=== PATIENT | male | born 1990 | race Caucasian/White ===

== ENCOUNTER 2021-04-20 21:56 | Inpatient (IN) | payer SELFPAY ==
[~2021-04-20] VITALS: Ht 170.2 cm; Wt 90.9 kg
[2021-04-20] MEDS ORDERED: VENTAER INH (22:10)
[2021-04-20] MEDS ORDERED: CETI10CH PO (22:10)
[2021-04-20] MEDS ORDERED: LEXA1TAB PO (22:10)
[2021-04-21] MEDS ORDERED: ONDANSETRON 4 MG ORAL DISINTEGRATING TAB PO ONE (00:05)
[2021-04-21] MEDS ORDERED: NS 1,000 ML IV ONE (02:45)
[2021-04-21 03:18] LABS: BASO % 0.4 % (0.0-1.0); EOS % 0.4 % (0.0-3.0); HEMATOCRIT 41.9 % (42.0-52.0); HEMOGLOBIN 14.6 g/dl (13.5-17.5); LYMPH # 1.7 10^3/uL (1.5-5.0); LYMPH % 15.5 % (24.0-44.0); MEAN CORPUSCULAR HEMOGLOBIN 30.3 pg (27.0-33.0); MEAN CORPUSCULAR HGB CONC 34.8 g/dl (32.0-36.5); MEAN CORPUSCULAR VOLUME 86.9 fl (80.0-96.0); MONO # 0.9 10^3/uL (0.0-0.8); MONO % 8.7 % (2.0-8.0); NEUTROPHILS % 74.6 % (36.0-66.0); PLATELET COUNT, AUTOMATED 235 10^3/uL (150-450); RED BLOOD COUNT 4.82 10^6/uL (4.30-6.10); WHITE BLOOD COUNT 10.7 10^3/uL (4.0-10.0)
[2021-04-21 03:55] LABS: ALBUMIN 3.8 GM/DL (3.2-5.2); ALT/SGPT 21 U/L (12-78); BILIRUBIN,DIRECT 0.2 MG/DL (0.0-0.2); BILIRUBIN,TOTAL 0.8 MG/DL (0.2-1.0); BLOOD UREA NITROGEN 11 MG/DL (7-18); CARBON DIOXIDE LEVEL 23 MEQ/L (21-32); CHLORIDE LEVEL 108 MEQ/L (98-107); CREATININE FOR GFR 0.94 MG/DL (0.70-1.30); GLOMERULAR FILTRATION RATE > 60.0 (>60); GLUCOSE, FASTING 98 MG/DL (70-100); LIPASE 103 U/L (73-393); POTASSIUM SERUM 3.4 MEQ/L (3.5-5.1); SODIUM LEVEL 140 MEQ/L (136-145); TOTAL PROTEIN 7.5 GM/DL (6.4-8.2)
[2021-04-21] MEDS ORDERED: POTASSIUM CHLORIDE 10 MEQ SR TABLET PO ONE (04:30)
--- NOTE | 2021-04-21 04:33 | REPVR ---
PROCEDURE INFORMATION: Exam: CT Abdomen And Pelvis Without Contrast Exam date and time: 04/21/2021 3:05 AM Age: 31 years old Clinical indication: Vomiting TECHNIQUE: Imaging protocol: Computed tomography of the abdomen and pelvis without contrast. Radiation optimization: All CT scans at this facility use at least one of these dose optimization techniques: automated exposure control; mA and/or kV adjustment per patient size (includes targeted exams where dose is matched to clinical indication); or iterative reconstruction. COMPARISON: No relevant prior studies available. FINDINGS: Liver: Normal. No mass. Gallbladder and bile ducts: Question of layering sludge or faint stones in the gallbladder. Pancreas: Normal. No ductal dilation. Spleen: Normal. No splenomegaly. Adrenal glands: Normal. No mass. Kidneys and ureters: Normal. No hydronephrosis. Stomach and bowel: There is colonic diverticulosis without evidence of diverticulitis. Slight wall thickening of small bowel segments in the right lower quadrant. Appendix: A normal appendix is seen. Intraperitoneal space: Slight edema of supplying mesentery in the lower abdomen and pelvis. Vasculature: Unremarkable. No abdominal aortic aneurysm. Lymph nodes: Unremarkable. No enlarged lymph nodes. Urinary bladder: Unremarkable as visualized. Reproductive: Unremarkable as visualized. Bones/joints: Unremarkable. No acute fracture. Soft tissues: Unremarkable. IMPRESSION: 1. Suggestion of enteritis, particularly involving right lower quadrant ileal segments. 2. Question of layering sludge or faint stones in the gallbladder. 3. Colonic diverticulosis without diverticulitis. Electronically signed by: Fidel De La Cruz On 04/21/2021 04:32:26 AM
[2021-04-21] MEDS ORDERED: PROMETHAZINE INJ 25 MG/ML VIAL (J2550) IV ONE ×2 (04:35→10:10)
[2021-04-21] MEDS ORDERED: CETI-24 PO (04:57)
[2021-04-21] MEDS ORDERED: LEXA1TAB PO (04:57)
[2021-04-21] MEDS ORDERED: PROAAER10 INH (04:57)
[2021-04-21] MEDS ORDERED: ZOFR4TAB16 PO (05:01)
[2021-04-21] MEDS ORDERED: MULTCHW12 PO (05:01)
[2021-04-21] MEDS ORDERED: ONDANSETRON 4MG/2ML VIAL IV PRN (05:25)
[2021-04-21] MEDS ORDERED: MOM 30ML SUSPENSION UDC PO PRN (05:25)
[2021-04-21] MEDS ORDERED: PROMETHAZINE INJ 25 MG/ML VIAL (J2550) IV PRN (05:25)
[2021-04-21] MEDS ORDERED: MAALOX 30 ML SUSP *UDC PO PRN (05:25)
[2021-04-21] MEDS ORDERED: ALBUTEROL 90 MCG/ACT 8GM HFA INHALER INH PRN (06:00)
[2021-04-21] MEDS ORDERED: CETIRIZINE (ZyrTEC) 10 MG TAB PO PRN (06:00)
[2021-04-21] MEDS ORDERED: CAPSAICIN 0.025% CR 60 GM TOP PRN (06:00)
--- NOTE | 2021-04-21 06:29 | HPEPDOC ---
[facility] Medical History & Physical Date of Admission April 21, 2021 Date of Service: April 21, 2021 Attending Physician: MUSA LANDRY MD History and Physical CHIEF COMPLAINT: Uncontrollable nausea and vomiting HISTORY OF PRESENT ILLNESS: Patient is a 31-year-old male with a past medical history of [place]-Ocampo tear, mild persistent asthma, anxiety/depression, chronic migraine headaches who presents to [facility] ED straight from [place] because of no improvement in his symptoms including nausea, vomiting and wretching. Patient states he was apparently ordered Sunday morning when he received his first dose of Moderna vaccine 12 hours after which he started with continuous vomiting spells(6-7) and nausea. The vomiting was initially forceful, included everything he ate, with a tinge of blood. He reported to the [place] urgent care Sunday was given treatments including IV fluids and Zofran and sent home . That didn't help at all. Patient continued to have dry heaving and burping as he had an been able to keep anything down. He also started having severe dull abdominal pain in all quadrants due to continuous wretching. All day Sunday patient continued to wretch unable to keep anything down and started getting dizzy with cold sweats and extreme weakness where he fell down multiple times. Patient presented today at [facility] ED looking dehydrated , however normal vitals, his labs showed slight most likely reactive leukocytosis, hypokalemia and CT abdomen showed: 1. Suggestion of enteritis, particularly involving right lower quadrant ileal segments. 2. Question of layering sludge or faint stones in the gallbladder. 3. Colonic diverticulosis without diverticulitis. Patient also has a history of heavy marijuana use. The last time patient had marijuana as per him was Sunday. However he denies heavy marijuana use but he has been using for more than a year. PAST MEDICAL HISTORY: 1. Mild persistent asthma. 2. 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 3. Anxiety and depression. PAST SURGICAL HISTORY: None SOCIAL HISTORY: Employment: Currently unemployed Tobacco use: Never smoker ETOH: Occasional Illicit drug use: Denies Tattoos done unprofessionally: Denies IV drug use: Denies Other relevant social factors: None FAMILY HISTORY: Unremarkable Hereditary Diseases: None Unexpected deaths due to medical reasons: No ALLERGIES: Please see below. REVIEW OF SYSTEMS: CONSTITUTIONAL: No fevers/chills/unintentional weight loss/night sweats. HEENT: No sore throat/runny nose. CARDIOVASCULAR: No chest pain/orthopnea/PND/leg swelling. RESPIRATORY: No shortness of breath/cough. GASTROINTESTINAL: No diarrhea/constipation. However reports severe nausea and vomiting. GENITOURINARY: No dysuria/polyuria. SKIN: No excessive bleeding or bruising. MUSCULOSKELETAL: Noted joint pain/joint stiffness. NEUROLOGICAL: No numbness/tingling/paresthesias. PSYCHIATRIC: No depression. Reports excessive anxiety due to current condition. ENDOCRINE: No polydipsia/polyphagia/polyuria. HEMATOLOGIC/LYMPHATIC: Nor lumps or bumps/excessive bleeding or bruising. HOME MEDICATIONS: Please see below. PHYSICAL EXAMINATION: VITAL SIGNS: Temperature 98.4, pulse 68, respiratory rate 18, blood pressure 134/75, pulse oximetry 98 % on room air. GENERAL APPEARANCE: Patient looks overly anxious and moderately distressed maurice use of the discomfort in his belly and nausea. HEENT: Atraumatic, normocephalic, dry mucous membranes, no scleral icterus, no conjunctival pallor, EOMI, PERRLA. CARDIOVASCULAR: Rate normal, rhythm regular, S1 and S2 heard, no murmurs appreciated. LUNGS: Clear to auscultation bilaterally. No wheezing/crackles/rhonchi. ABDOMEN: Nondistended. Tender to deep palpation in all quadrants. No organomegal y. Hyperactive bowel sounds. MUSCULOSKELETAL: No joint pain deformity. Range of motion normal in all joints. EXTREMITIES: Good volume pulses, no pedal edema. Capillary refill delayed. NEUROLOGICAL: Good motor strength 5 over 5, sensations intact. Cranial nerves II-12 normal. PSYCHIATRIC: Anxious. Normal affect and mood. LABORATORY DATA: See below. IMAGING: CT abdomen and pelvis done on 04/21/2021: Shows 1. Suggestion of enteritis, particularly involving right lower quadrant ileal segments. 2. Question of layering sludge or faint stones in the gallbladder. 3. Colonic diverticulosis without diverticulitis. MICROBIOLOGY: Please see below. ASSESSMENT AND PLAN: Patient is a 31-year-old male with a past medical history of [place]-Ocampo tear, mild persistent asthma, anxiety/depression, chronic migraine headaches who presents to [facility] ED straight from [place] because of no improvement in his symptoms including nausea, vomiting and wretching. Patient states he was apparently ordered Sunday morning when he received his first dose of Moderna vaccine 12 hours after which he started with continuous vomiting spells(6-7) and nausea. The vomiting was initially forceful, included everything he ate, with a tinge of blood. He reported to the [place] urgent care Sunday was given treatments including IV fluids and Zofran and sent home . That didn't help at all. Patient continued to have dry heaving and burping as he had an been able to keep anything down. He also started having severe dull abdominal pain in all quadrants due to continuous wretching. All day Sunday patient continued to wretch unable to keep anything down and started getting dizzy with cold sweats and extreme weakness where he fell down multiple times. #Recurrent nausea and vomiting secondary to viral/bacterial gastroenteritis versus cannabis hyperemesis versus diverticulitis : -Lab workup shows low potassium of 3.3. Otherwise no other electrolyte abnormality. -CT abdomen showed enteritis and presence of diverticulosis without any evidence of diverticulitis. -Patient was given oral ondansetron. -IV promethazine 12.5 mg which helped resolve the vomiting. -Patient was started on IV fluids with D5. -Patient is still nothing by mouth -We are holding patient's medications that might cause gastric irritation. -Patient was advised not to take Excedrin or Aleve for his headaches. -And gastroenterology will see the patient in the morning. Giving recommendations whether endoscopy and colonoscopy is indicated. Their expert input and recommendations are highly recommended. -As needed capsaicin cream ordered for pain and discomfort. #Hypokalemia: -Most likely due to continuous vomiting and decreased oral intake. -Patient was repleted with oral potassium -Will continue to trend on morning labs. -Patient's EKG was normal. #Mild persistent asthma: -Patient states he only requires to take albuterol inhaler 2-3 times a week. -Will continue patient's home inhalers. #Virgin[place]-Ocampo tear diagnosed couple of years ago: -Patient has a history of vomiting with tinge of blood. -Patient denies binge eating disorder or heavy drinking. -Proper diagnosis needs to be made as an outpatient with shake backboard notcher #Chronic migraine headaches: -Patient has not been diagnosed however he sees the headache feels like migraine. -Patient advised to stop taking Aleve and Excedrin for these headaches instead he can try Tylenol. -Acetaminophen ordered for pain control. DVT prophylaxis: Teds and sequentials. No anticoagulants suspecting a possible GI bleed DISPOSITION: Pending improvement, most likely 2 hospital days. Vital Signs Vital Signs Date Time Temp Pulse Resp B/P (MAP) Pulse Ox O2 Delivery O2 Flow Rate FiO2 04/20/21 22:03 98.4 68 18 134/75 98 Room Air Laboratory Data Labs 24H Laboratory Tests 2 04/21/21 03:01: Immature Granulocyte % (Auto) 0.4, Neutrophils (%) (Auto) 74.6H, Lymphocytes (%) (Auto) 15.5L, Monocytes (%) (Auto) 8.7H, Eosinophils (%) (Auto) 0.4, Basophils (%) (Auto) 0.4, Neutrophils # (Auto) 8.0, Lymphocytes # (Auto) 1.7, Monocytes # (Auto) 0.9H, Eosinophils # (Auto) 0.0, Basophils # (Auto) 0.0, Nucleated Red Blood Cells % (auto) 0.0, Anion Gap 9, Glomerular Filtration Rate > 60.0, Lactic Acid Level 1.1, Calcium Level 9.0, Total Bilirubin 0.8, Direct Bilirubin 0.2, Aspartate Amino Transf (AST/SGOT) 17, Alanine Aminotransferase (ALT/SGPT) 21, Alkaline Phosphatase 56, Total Protein 7.5, Albumin 3.8, Albumin/Globulin Ratio 1.0, Lipase 103 04/21/21 04:44: Urine Color YELLOW, Urine Appearance CLEAR, Urine pH 6.0, Urine Specific [place] 1.015, Urine Protein NEGATIVE, Urine Glucose (UA) NEGATIVE, Urine Ketones 1+H, Urine Blood NEGATIVE, Urine Nitrite NEGATIVE, Urine Bilirubin NEGATIVE, Urine Urobilinogen 0.2, Urine Leukocyte Esterase NEGATIVE, Urine WBC (Auto) 0, Urine RBC (Auto) 0, Urine Hyaline Casts (Auto) 0, Urine Bacteria (Auto) NEGATIVE, Urine Squamous Epithelial Cells 0, Urine Mucus (Auto) SMALL, Urine Sperm (Auto) CBC/BMP Laboratory Tests 04/21/21 03:01 Home Medications Scheduled Escitalopram Oxalate (Lexapro) 10 Mg Tablet, 10 MG PO DAILY TAKES AT NOON Folic Acid/Multivit-Min/Lutein (Multi-Vitamin Gummies) 1 Each Tab.chew, 2 CHW PO DAILY TAKES AT NOON Scheduled PRN Albuterol Sulfate (Proair Hfa) 8.5 Gm Hfa.aer.ad, 2 PUFF INH Q4H PRN for SHORTNESS OF BREATH Cetirizine HCl (Cetirizine HCl) 10 Mg Tablet, 10 MG PO DAILY PRN for allergies Ondansetron HCl (Zofran) 4 Mg Tablet, 4 MG PO Q6H PRN for NAUSEA OR VOMITING Allergies Coded Allergies: SEASONAL ALLERGIES (Verified Allergy, Mild, 04/20/21) A-FIB/CHADSVASC A-FIB History Current/History of A-Fib/PAF?: No Current PO Anticoag Therapy: No GME ATTESTATION GME ATTESTATION My faculty preceptor for this patient encounter was physically present during the encounter and was fully available. All aspects of the patient interview, examination, medical decision making process, and medical care plan development were reviewed and approved by the faculty preceptor. The faculty preceptor is aware and concurs with the plan as stated in the body of this note and will attest to such by his/her cosignature. Neftaly Jurado MD April 21, 2021 06:29
[2021-04-21 07:20] LABS: HEMATOCRIT 39.9 % (42.0-52.0); HEMOGLOBIN 13.6 g/dl (13.5-17.5); MEAN CORPUSCULAR HEMOGLOBIN 29.9 pg (27.0-33.0); MEAN CORPUSCULAR HGB CONC 34.1 g/dl (32.0-36.5); MEAN CORPUSCULAR VOLUME 87.7 fl (80.0-96.0); PLATELET COUNT, AUTOMATED 214 10^3/uL (150-450); RED BLOOD COUNT 4.55 10^6/uL (4.30-6.10); WHITE BLOOD COUNT 10.6 10^3/uL (4.0-10.0)
[2021-04-21 07:33] LABS: INR 1.11; PARTIAL THROMBOPLASTIN TIME 26.4 SECONDS (24.2-38.5); PROTHROMBIN TIME 14.5 SECONDS (12.5-14.3)
[2021-04-21 07:36] LABS: D-DIMER QUANT 1130.31 ng/ml (<500)
[2021-04-21 07:50] LABS: ALBUMIN 3.6 GM/DL (3.2-5.2); ALT/SGPT 21 U/L (12-78); AMYLASE 42 U/L (25-115); BILIRUBIN,TOTAL 0.8 MG/DL (0.2-1.0); BLOOD UREA NITROGEN 10 MG/DL (7-18); CALCIUM LEVEL 8.5 MG/DL (8.5-10.1); CARBON DIOXIDE LEVEL 23 MEQ/L (21-32); CHLORIDE LEVEL 108 MEQ/L (98-107); CREATININE FOR GFR 0.94 MG/DL (0.70-1.30); GLOMERULAR FILTRATION RATE > 60.0 (>60); GLUCOSE, FASTING 99 MG/DL (70-100); LIPASE 94 U/L (73-393); POTASSIUM SERUM 3.3 MEQ/L (3.5-5.1); SODIUM LEVEL 140 MEQ/L (136-145); TOTAL PROTEIN 7.2 GM/DL (6.4-8.2)
[2021-04-21] MEDS: D5W/0.9% SODIUM CHLORIDE 1,000 ML IV SCH ×2 (08:07→14:02)
[2021-04-21] MEDS: PANTOPRAZOLE 40MG VIAL (C9113 PER 1) IV SCH ×2 (08:08→21:40)
[2021-04-21 09:28] VITALS: BP 170/90
[2021-04-21] MEDS ORDERED: HYDROMORPHONE HCL 0.5 MG/ 0.5 ML SYRINGE (J1170 PER 1) IV ONE (10:10)
[2021-04-21] MEDS ORDERED: PROMETHAZINE INJ 25 MG/ML VIAL (J2550) IV SCH (11:00)
[2021-04-21 11:03] VITALS: BP 125/55
[2021-04-21] MEDS: KETOROLAC 30 MG/ML 1ML VIAL IV ONE ×2 (11:58→14:07)
[2021-04-21] MEDS: METOCLOPRAMIDE INJ 10MG/2ML VIAL (J2765 PER 1) IV SCH ×2 (12:10→18:21)
[2021-04-21] MEDS: CIPROFLOXACIN 400 MG in IV 1 EA IV SCH (12:10)
[2021-04-21] MEDS: SUCRALFATE SUSP 1GM/10ML UD PO SCH ×2 (12:10→17:05)
[2021-04-21 14:00] VITALS: BP 149/97
[2021-04-21] MEDS: metroNIDAZOLE 500 MG in IV 1 EA IV SCH ×2 (14:02→21:40)
[2021-04-21] MEDS ORDERED: ALPRAZolam 0.5 MG TAB PO ONE (16:30)
[2021-04-21] MEDS: ACETAMINOPHEN TAB 650MG DOSE (2X325MG) PO PRN (21:38)
[2021-04-21 22:00] VITALS: BP 124/75
[2021-04-21] MEDS ORDERED: KETOROLAC 30 MG/ML 1ML VIAL IV ONE (23:45)
[2021-04-22] MEDS: METOCLOPRAMIDE INJ 10MG/2ML VIAL (J2765 PER 1) IV SCH ×4 (00:11→17:15)
[2021-04-22] MEDS: SUCRALFATE SUSP 1GM/10ML UD PO SCH ×4 (00:12→17:15)
[2021-04-22] MEDS: CIPROFLOXACIN 400 MG in IV 1 EA IV SCH ×2 (00:12→11:25)
[2021-04-22] MEDS: metroNIDAZOLE 500 MG in IV 1 EA IV SCH ×3 (05:25→21:03)
[2021-04-22] MEDS: D5W/0.9% SODIUM CHLORIDE 1,000 ML IV SCH ×3 (05:26→21:04)
[2021-04-22 06:00] VITALS: BP 101/69
[2021-04-22] MEDS ORDERED: ALPRAZolam 0.5 MG TAB PO ONE (06:30)
[2021-04-22] MEDS ORDERED: diphenhydrAMINE 50MG/ML VIAL (J1200) IV PRN (06:30)
[2021-04-22] MEDS: PROMETHAZINE INJ 25 MG/ML VIAL (J2550) IV PRN ×2 (07:11→13:56)
[2021-04-22 07:51] LABS: BASO # 0.1 10^3/uL (0.0-0.2); BASO % 0.8 % (0.0-1.0); EOS # 0.4 10^3/uL (0.0-0.5); EOS % 4.9 % (0.0-3.0); HEMATOCRIT 41.3 % (42.0-52.0); HEMOGLOBIN 14.2 g/dl (13.5-17.5); LYMPH # 1.9 10^3/uL (1.5-5.0); LYMPH % 25.2 % (24.0-44.0); MEAN CORPUSCULAR HEMOGLOBIN 29.3 pg (27.0-33.0); MEAN CORPUSCULAR HGB CONC 34.4 g/dl (32.0-36.5); MEAN CORPUSCULAR VOLUME 85.2 fl (80.0-96.0); MONO # 0.8 10^3/uL (0.0-0.8); MONO % 10.6 % (2.0-8.0); NEUTROPHILS # 4.4 10^3/uL (1.5-8.5); NEUTROPHILS % 57.8 % (36.0-66.0); PLATELET COUNT, AUTOMATED 230 10^3/uL (150-450); RED BLOOD COUNT 4.85 10^6/uL (4.30-6.10); WHITE BLOOD COUNT 7.5 10^3/uL (4.0-10.0)
[2021-04-22] MEDS: PANTOPRAZOLE 40MG VIAL (C9113 PER 1) IV SCH ×2 (08:06→21:03)
[2021-04-22] MEDS ORDERED: NS 1,000 ML IV ONE (08:10)
[2021-04-22 08:13] LABS: BLOOD UREA NITROGEN 10 MG/DL (7-18); CALCIUM LEVEL 8.5 MG/DL (8.5-10.1); CARBON DIOXIDE LEVEL 27 MEQ/L (21-32); CHLORIDE LEVEL 106 MEQ/L (98-107); CREATININE FOR GFR 0.88 MG/DL (0.70-1.30); GLOMERULAR FILTRATION RATE > 60.0 (>60); GLUCOSE, FASTING 103 MG/DL (70-100); MAGNESIUM LEVEL 2.2 MG/DL (1.8-2.4); POTASSIUM SERUM 2.9 MEQ/L (3.5-5.1); SODIUM LEVEL 140 MEQ/L (136-145)
[2021-04-22] MEDS ORDERED: HYDROMORPHONE HCL 0.5 MG/ 0.5 ML SYRINGE (J1170 PER 1) IV ONE (08:15)
[2021-04-22] MEDS ORDERED: PERCOCET 5MG/325MG TAB PO PRN (08:15)
[2021-04-22] MEDS ORDERED: PERCOCET 5MG/325MG TAB PO ONE (08:30)
[2021-04-22] MEDS: POTASSIUM CHLORIDE 10 MEQ SR TABLET PO SCH ×3 (08:38→13:40)
[2021-04-22] MEDS: KETOROLAC 30 MG/ML 1ML VIAL IV SCH ×3 (08:38→21:04)
[2021-04-22 08:40] LABS: ALBUMIN 3.4 GM/DL (3.2-5.2); ALT/SGPT 21 U/L (12-78); BILIRUBIN,DIRECT 0.3 MG/DL (0.0-0.2); FREE THYROXINE INDEX 2.4 % (1.4-3.8); T UPTAKE 30 % (33-40); THYROXINE (T4) 8.1 UG/DL (4.5-12.0)
--- NOTE | 2021-04-22 11:23 | REP ---
INDICATION: intractable n/v. COMPARISON: None. TECHNIQUE/RADIOTRACER AND DOSE: 1.0 mCi of Technetium-99m sulfur colloid was ingested in two scrambled eggs and 6 ounces of water and sequential anterior and posterior images are acquired for an 89-minute imaging observation period. Regions of interest are drawn around the stomach to plot gastric emptying. FINDINGS: Expected T1/2 is 90 minutes. Fifty-seven% emptying is observed in this patient during the 89-minute imaging observation period, for a calculated T1/2 in this patient of 55 minutes. IMPRESSION: Normal gastric emptying. <Electronically signed by Erick Duran > 04/22/21 [id number]
[2021-04-22] MEDS: ESCITALOPRAM OXALATE 10 MG TAB (LEXAPRO) PO SCH (11:27)
--- NOTE | 2021-04-22 11:29 | IPN ---
PROGRESS NOTE DATE: 04/22/2021 SUBJECTIVE: Patient complains of abdominal pain diffusely, no radiation, no constipation or diarrhea. Patient has no fever or chills. Nausea has improved with [id number] Phenergan and Reglan. OBJECTIVE: Vital signs: Temperature 97.1, pulse 54, respiratory rate 18, blood pressure 122/80, 97% on room air. General: Awake, alert, oriented to person, place and time, answering questions appropriately, no distress. HEENT: No icterus, jaundice. Moist mucous membranes. Lungs: Clear to auscultation, no wheezes, rhonchi or rales. Heart: S1 and S2 sinus rhythm, episodes of sinus bradycardia. Abdomen: Soft, slightly tender diffusely, no guarding or rebound, positive bowel sounds times 4 quadrants, no hepatosplenomegaly, abdominal bruits. Extremities: No cyanosis, clubbing or pitting edema. LABORATORY DATA: Microbiology has been reviewed, notable for a potassium of 2.9, TSH 6. 8 with normal Free-T4. IMAGING STUDIES: CT abdomen and pelvis 04/21/2021 shows enteritis right lower quadrant ileo segment, gallbladder sludging versus tiny stones. 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 IMPRESSION/PLAN: Right lower quadrant enteritis: Patient is on full supportive care with I.V. Reglan, Phenergan, I.V. fluids until he resumes normal intake with a regular diet. Percocet as needed 1 tablet every 4 hours, Toradol 30 mg I.V. q6h while on I.V. fluids. Currently on I.V. Cipro and Flagyl, Carafate and Protonix I.V. twice a day. Patient is resumed on albuterol as needed for his asthma, but has clear lungs currently. No other acute issues only to monitor and slowly advance diet, send for IBD serology.
[2021-04-22] MEDS ORDERED: POTASSIUM CHLORIDE 10 MEQ SR TABLET PO ONE (13:20)
[2021-04-22 14:00] VITALS: BP 138/85
[2021-04-22 22:00] VITALS: BP 107/65
[2021-04-23] MEDS: SUCRALFATE SUSP 1GM/10ML UD PO SCH ×3 (00:16→11:08)
[2021-04-23] MEDS: CIPROFLOXACIN 400 MG in IV 1 EA IV SCH ×2 (00:16→11:08)
[2021-04-23] MEDS: METOCLOPRAMIDE INJ 10MG/2ML VIAL (J2765 PER 1) IV SCH ×3 (00:16→11:08)
[2021-04-23] MEDS: KETOROLAC 30 MG/ML 1ML VIAL IV SCH ×2 (03:08→09:00)
[2021-04-23] MEDS: metroNIDAZOLE 500 MG in IV 1 EA IV SCH ×2 (04:38→12:16)
[2021-04-23 06:00] VITALS: BP 114/68
[2021-04-23 06:43] LABS: HEMATOCRIT 41.8 % (42.0-52.0); MEAN CORPUSCULAR HGB CONC 33.5 g/dl (32.0-36.5); MEAN CORPUSCULAR VOLUME 86.5 fl (80.0-96.0); PLATELET COUNT, AUTOMATED 246 10^3/uL (150-450); RED BLOOD COUNT 4.83 10^6/uL (4.30-6.10); WHITE BLOOD COUNT 7.9 10^3/uL (4.0-10.0)
[2021-04-23 07:10] LABS: ATYPICAL LYMPH 9 % (0-5); BASOPHILS 1 % (0-1); EOSINOPHILS 4 % (0-3); LYMPHOCYTES 24 % (16-44); MONOCYTES 8 % (0-5); NEUTROPHILS 53 % (28-66)
[2021-04-23 07:12] LABS: PLATELET ESTIMATE NORMAL (NORMAL)
[2021-04-23 07:29] LABS: BLOOD UREA NITROGEN 6 MG/DL (7-18); CARBON DIOXIDE LEVEL 27 MEQ/L (21-32); CHLORIDE LEVEL 104 MEQ/L (98-107); CREATININE FOR GFR 0.89 MG/DL (0.70-1.30); GLOMERULAR FILTRATION RATE > 60.0 (>60); GLUCOSE, FASTING 91 MG/DL (70-100); POTASSIUM SERUM 3.2 MEQ/L (3.5-5.1); SODIUM LEVEL 140 MEQ/L (136-145)
[2021-04-23 07:30] LABS: CALCIUM LEVEL 8.8 MG/DL (8.5-10.1)
[2021-04-23] MEDS: D5W/0.9% SODIUM CHLORIDE 1,000 ML IV SCH (07:54)
[2021-04-23] MEDS: PANTOPRAZOLE 40MG VIAL (C9113 PER 1) IV SCH (07:59)
[2021-04-23] MEDS: ACETAMINOPHEN TAB 650MG DOSE (2X325MG) PO PRN (08:00)
[2021-04-23] MEDS ORDERED: FLAG500T PO (08:31)
[2021-04-23] MEDS ORDERED: BACI1CAP PO (08:31)
[2021-04-23] MEDS ORDERED: CIPR-249 PO (08:31)
[2021-04-23] MEDS ORDERED: OXYC1TAB23 PO (08:31)
[2021-04-23] MEDS: LOMOTIL 2.5MG/0.025MG TABLET PO SCH ×2 (09:16→12:15)
[2021-04-23] MEDS: POTASSIUM CHLORIDE 10 MEQ SR TABLET PO SCH ×3 (09:17→11:07)
--- NOTE | 2021-04-23 11:09 | DSES ---
DISCHARGE SUMMARY DATE OF ADMISSION: 04/21/2021 DATE OF DISCHARGE: 04/23/2021 PRIMARY DISCHARGE DIAGNOSES: 1. Ileitis. 2. Intractable nausea and vomiting; rule out cyclic vomiting syndrome secondary to marijuana. 3. Chronic back pain. 4. Recreational drug use with marijuana. 5. 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 6. Asthma. 7. Anxiety. 8. Depression. 9. History of chronic migraines. 10.Diverticulosis. DISCHARGE MEDICATIONS: 1. Ciprofloxacin 500 p.o. b.i.d. 2. Flagyl 500 p.o. every 8 hours. 3. Bacid one tab with meals. 4. Percocet one tablet t.i.d. as needed for pain. 5. Albuterol two puffs every 4 hours as needed. 6. Cetirizine 10 daily. 7. Lexapro 10 daily. 8. Folic acid two tablets daily. 9. Zofran 4 mg every 6 hours as needed. HOSPITAL COURSE: This is a 31-year-old male admitted on 04/21/2021 with complaints of intractable nausea, vomiting and abdominal pain which was diffuse. Twelve hours after receiving the Moderna vaccine for Coronavirus. Patient complained of dizziness, cold sweats and weakness and was found to have a right ileitis. He was started on Cipro, Flagyl, antiemetic, I.V. fluids [id number]. White count was 10.7. He was afebrile. Gastric emptying study was negative. He was kept on PPI and Carafate. He had complaints of diarrhea and was found to have low potassium, which was supplemented. GI panel was negative. Hemoccult stool was negative. Per muffler hand on-call, Dr. Ma, patient may have outpatient follow-up with him. Inflammatory bowel disease serology has been sent and is pending at discharge. Patient had resolution of his abdominal pain and diarrhea, was able to tolerate his clear liquid diet, which was advanced to full liquids and low residue at discharge. Patient has no other complaints. PHYSICAL EXAMINATION ON DISCHARGE: VITAL SIGNS: Temperature 98.2, pulse 65, respiratory rate 20, blood pressure 107/65, 98% on room air. GENERAL: Awake, alert, oriented x3, answering questions appropriately. HEENT: No mouth ulcers. No JVD, thyromegaly or cervical lymphadenopathy. LUNGS: Clear to auscultation. No wheezing, rales or rhonchi. HEART: S1, S2, sinus rhythm with episodes of sinus bradycardia, but asymptomatic, nondisplaced point of maximal impulse. ABDOMEN: Soft, nontender, non-distended. Positive bowel sounds x4 quadrants. No rebound or guarding. EXTREMITIES: No cyanosis, clubbing or any pitting edema. LABORATORY DATA ON DISCHARGE: White count 7.9, hemoglobin 14, hematocrit 41, platelet count 246,000. Sodium 140, potassium 3.2, chloride 104, bicarb 27, BUN 6, creatinine 0.89, glucose 91. IBD serology is still pending. MICROBIOLOGY: GI panel, hemoccult stool are both negative. IMAGING: CT abdomen and pelvis shows ileitis with slight edema, supplying the mesentery in the lower abdomen and pelvis, layering sludge in the gallbladder, right lower quadrant ileal segment, colonic diverticulosis. Gastric emptying scan was normal. TIME SPENT ON DISCHARGE: 30 minutes. MTDD
[2021-04-23] MEDS: ESCITALOPRAM OXALATE 10 MG TAB (LEXAPRO) PO SCH (12:15)
[2021-04-27 14:09] LABS: Chitobioside Carbohydrat (ACCA 127 units (0-90); Laminaribioside Carbohyd (ALCA 23 units (0-60); Mannobioside Carbohydrat (AMCA 83 units (0-100); Saccharomyces cerevisiae IgG A 34 units (0-50)
== END 2021-04-23 15:00 | disposition home or self-care (01) | DRG 249 ==
LOC: M ED 21:56 → M ED INP 04-21 06:05 → ENRESERV 04-21 06:17 → M MSPAV 04-21 08:23 → OBSVTOIN 04-22 10:41
PROVIDERS: ADMIT Family Medicine; ATTEND General Practice
DX: K52.9 Noninfective gastroenteritis and colitis, unspecified (principal); F32.9 Major depressive disorder, single episode, unspecified; R11.2 Nausea with vomiting, unspecified; E87.6 Hypokalemia; J45.909 Unspecified asthma, uncomplicated; F41.9 Anxiety disorder, unspecified; G43.709 Chronic migraine without aura, not intractable, without status migrainosus; D72.829 Elevated white blood cell count, unspecified; Z87.19 Personal history of other diseases of the digestive system; Z79.899 Other long term (current) drug therapy; M54.9 Dorsalgia, unspecified; F12.188 Cannabis abuse with other cannabis-induced disorder

== ENCOUNTER 2021-05-13 21:12 | Emergency (ER) | payer MEDICAID, SELFPAY ==
[~2021-05-13] VITALS: Ht 170.2 cm; Wt 86.4 kg
[~2021-05-13 21:12] MED LIST: BACI1CAP PO; CETI-24 PO; CETI10CH PO; CIPR-249 PO; FLAG500T PO; LEXA1TAB PO; MULTCHW12 PO; OXYC1TAB23 PO; PROAAER10 INH; VENTAER INH; ZOFR4TAB16 PO
[2021-05-13 21:13] VITALS: BP 150/94
[2021-05-13] MEDS ORDERED: HYDR-4571 (21:23)
[2021-05-13] MEDS ORDERED: PROM1SUP2 (21:23)
[2021-05-13] MEDS ORDERED: LORA1TAB4 (21:23)
[2021-05-13] MEDS ORDERED: PROT1TAB2 (21:23)
[2021-05-13] MEDS ORDERED: AMOX500C (21:23)
== END 2021-05-13 22:45 | disposition left against medical advice (07) ==
LOC: M ED 21:12
DX: R11.10 Vomiting, unspecified (principal); Z53.21 Procedure and treatment not carried out due to patient leaving prior to being seen by health care provider